=== PATIENT | male | born 1945 | race Two or more races ===

== ENCOUNTER → 2023-04-17 | Outpatient (CLI) | payer OTHER | END | disposition home or self-care (01) | LOC: LAB 14:50 | PROVIDERS: ATTEND Internal Medicine | DX: Z12.11 Encounter for screening for malignant neoplasm of colon (principal); E11.9 Type 2 diabetes mellitus without complications; E78.5 Hyperlipidemia, unspecified; N42.9 Disorder of prostate, unspecified; R68.89 Other general symptoms and signs | CPT/HCPCS: 82270 ==

== ENCOUNTER → 2024-03-09 | Outpatient (CLI) | payer OTHER ==
[2024-03-09 14:50] LABS: Alanine Aminotransferase 27 U/L (7-40); Albumin 4.3 g/dL (3.2-4.8); Alkaline Phosphatase 75 U/L (46-116); Anion Gap 6 (5-15); Aspartate Aminotransferase 14 U/L (13-40); BUN/Creatinine Ratio 13.5 (10.0-20.0); Blood Urea Nitrogen 13 mg/dL (9-23); Calcium 9.6 mg/dL (8.7-10.4); Carbon Dioxide 29 mmol/L (20-30); Chloride 102 mmol/L (98-107); Glucose 216 mg/dL (74-106); Potassium 3.8 mmol/L (3.5-5.1); Sodium 137 mmol/L (136-145)
[2024-03-09 14:51] LABS: Bilirubin, Total 0.7 mg/dL (0.2-1.0); Total Protein 6.9 g/dL (5.7-8.2)
[2024-03-09 15:13] LABS: Creatinine, Urine 120.64 mg/dL (30.0-125.0)
== END | disposition home or self-care (01) ==
LOC: LAB 13:59
PROVIDERS: ATTEND Internal Medicine
DX: E11.9 Type 2 diabetes mellitus without complications (principal)
CPT/HCPCS: 36415; 80053; 82043; 82570; 83036

== ENCOUNTER 2024-12-22 11:51 | Outpatient (CLI) | payer OTHER ==
[2024-12-22 12:10] LABS: Urine Bacteria None Seen /hpf (None Seen)
[2024-12-22 12:29] LABS: Basophils # (auto) 0 10 ^3/uL (0-0.2); Basophils % (auto) 0.4 % (0.0-2.0); Eosinophils # (auto) 0 10 ^3/uL (0-0.8); Eosinophils % (auto) 0.7 % (0.0-7.0); Hematocrit 42.3 % (41.0-53.0); Hemoglobin 14.5 g/dL (13.5-17.5); Lymphocytes # (auto) 1.2 10 ^3/uL (0.4-5.4); Lymphocytes % (auto) 22.1 % (10.0-50.0); Mean Corpuscular Hemoglobin 32.6 pg (28.0-32.0); Mean Corpuscular Hgb Conc. 34.2 g/dL (32.0-36.0); Mean Corpuscular Volume 95.5 fL (80.0-100.0); Monocytes # (auto) 0.3 10 ^3/uL (0-1.3); Monocytes % (auto) 5.3 % (0.0-12.0); Neutrophils # (auto) 3.8 10 ^3/uL (1.6-8.6); Neutrophils % (auto) 71.5 % (37.0-80.0); Nucleated Red Blood Cells % 0.1 %; Platelet Count (auto) 196 10^3/uL (140-450); Red Blood Cells 4.43 10^6/uL (4.5-5.90); Red Cell Distribution Width 13.4 % (11.8-14.3); Urine Blood Negative /uL (Negative); Urine Clarity Clear (Clear); Urine Color Light-Yellow (Yellow); Urine Protein, UAD Negative (Negative); Urine Squamous Epithelial Cell None Seen /hpf (<5); Urine Urobilinogen Normal (Negative); Urine WBC < 1 /HPF (0-3); White Blood Cell 5.4 10^3/uL (4.4-10.8)
[2024-12-22 12:41] LABS: Alanine Aminotransferase 26 U/L (7-40); Albumin 4.6 g/dL (3.2-4.8); Alkaline Phosphatase 76 U/L (46-116); Anion Gap 9 (5-15); Aspartate Aminotransferase 18 U/L (13-40); BUN/Creatinine Ratio 15.3 (10.0-20.0); Bilirubin, Total 0.7 mg/dL (0.2-1.0); Blood Urea Nitrogen 15 mg/dL (9-23); Calcium 10.2 mg/dL (8.7-10.4); Carbon Dioxide 27 mmol/L (20-31); Chloride 103 mmol/L (98-107); Cholesterol 105 mg/dL (< 200); Glucose 162 mg/dL (74-106); HDL Cholesterol 48 mg/dL (40-59); LDL Cholesterol 44 mg/dL (< 100); Potassium 3.9 mmol/L (3.5-5.1); Sodium 139 mmol/L (136-145); Triglycerides 69 mg/dL (< 150)
[2024-12-22 13:04] LABS: Creatinine, Urine 46.75 mg/dL (30.0-125.0)
[2024-12-22 13:20] LABS: Micro Albumin < 3.0 mg/L (<30.0); Microalb/Creat Ratio, Urine < 6.00
== END 2024-12-22 17:00 | disposition home or self-care (01) ==
LOC: LAB 11:51
PROVIDERS: ATTEND Internal Medicine
DX: E11.65 Type 2 diabetes mellitus with hyperglycemia (principal); E78.00 Pure hypercholesterolemia, unspecified
CPT/HCPCS: 36415; 80053; 80061; 81001; 82043; 82570; 83036; 85025

== ENCOUNTER 2024-12-27 12:59 | Outpatient (CLI) | payer OTHER ==
[2024-12-27 14:02] LABS: Lipase 38 U/L (12-53)
[2024-12-27 14:03] LABS: Amylase 64 U/L (30-118)
== END 2024-12-27 17:00 | disposition home or self-care (01) ==
LOC: LAB 12:59
PROVIDERS: ATTEND Internal Medicine
DX: N42.9 Disorder of prostate, unspecified (principal); K85.90 Acute pancreatitis without necrosis or infection, unspecified; E78.00 Pure hypercholesterolemia, unspecified; R68.89 Other general symptoms and signs; E11.69 Type 2 diabetes mellitus with other specified complication; Z12.11 Encounter for screening for malignant neoplasm of colon
CPT/HCPCS: 36415; 82150; 83690; 84153

== ENCOUNTER 2025-01-04 13:34 | Outpatient (CLI) | payer OTHER | END 2025-01-04 17:00 | disposition home or self-care (01) | LOC: LAB 13:34 | PROVIDERS: ATTEND Internal Medicine | DX: E11.69 Type 2 diabetes mellitus with other specified complication (principal); E78.00 Pure hypercholesterolemia, unspecified; N42.9 Disorder of prostate, unspecified; Z12.11 Encounter for screening for malignant neoplasm of colon | CPT/HCPCS: 82270 ==

== ENCOUNTER → 2025-06-15 | Day surgery (SDC) | payer OTHER ==
[2025-06-14 12:43] LABS: Hematocrit 38.3 % (41.0-53.0); Hemoglobin 13.4 g/dL (13.5-17.5); Mean Corpuscular Hemoglobin 33.2 pg (28.0-32.0); Mean Corpuscular Volume 94.8 fL (80.0-100.0); Nucleated Red Blood Cells % 0.0 %; Urine Budding Yeast OCCASIONAL /hpf (None Seen); Urine Protein, UAD Negative (Negative)
[2025-06-14 12:57] LABS: INR 1.03 (0.9-1.15); Partial Thromboplastin Time 28.8 SEC (24.5-34.5); Prothrombin Time 10.9 sec (9.3-11.8)
[2025-06-14 13:18] LABS: Alanine Aminotransferase 27 U/L (7-40); Albumin 4.4 g/dL (3.2-4.8); Alkaline Phosphatase 75 U/L (46-116); Anion Gap 9 (5-15); BUN/Creatinine Ratio 13.3 (10.0-20.0); Blood Urea Nitrogen 12 mg/dL (9-23); Calcium 9.6 mg/dL (8.7-10.4); Carbon Dioxide 29 mmol/L (20-31); Chloride 102 mmol/L (98-107); Potassium 4.3 mmol/L (3.5-5.1); Sodium 140 mmol/L (136-145); Total Protein 6.8 g/dL (5.7-8.2)
[2025-06-14 13:19] LABS: Bilirubin, Total 0.5 mg/dL (0.2-1.0)
[2025-06-14 13:20] LABS: Glucose 118 mg/dL (74-106)
--- NOTE | 2025-06-14 13:50 | DVHHP2 ---
History Allergies: Coded Allergies: NO KNOWN ALLERGIES (Unverified , 06/14/25) Chief Complaint: Left-sided inguinal hernia Present Illness(Onset/Duration Mr. Valencia is a 80-year-old male who presents for elective repair of left-sided inguinal hernia that has been present for a little over a year. Hernia causes him pain and discomfort. It is reducible. Patient has no complaints this morning, not sick or being recently sick. Past Surgical History Past medical history diabetes and hyperlipidemia Past surgical history umbilical hernia repair x2 with mesh Physical Exam Skin No jaundice EENT Neck is supple Chest and Lungs Nonlabored breathing with symmetric expansion Abdomen Nondistended, periumbilical scars were healed, left inguinal hernia with a proximally 2-3 cm in diameter defect, reducible, no overlying skin changes Extremities Moves all with positive distal pulses x4 Plan Mr. Valencia is a 80-year-old male who presents for elective open repair of left- sided inguinal hernia with mesh. Preop labs and imaging were reviewed, no abnormalities noted. All questions regarding the procedure were answered, and patient has no other doubts or concerns. We will proceed with surgery as planned. CAREN BLANCO MD Jun 14, 2025 13:50
[~2025-06-15] VITALS: Ht 177.8 cm; Wt 79.4 kg
[~2025-06-15] MED LIST: ACETAMINOPHEN IV 100 ML IV ONE; ATOR10TA52 PO; BENA20TA12 PO; BUPIVACAINE 0.25% INJ 50ML VIAL ONE; GARL200T PO; GLIP5TAB21 PO; HYDROmorphone HCL 2 MG/ML VL/or syr IV PRN; LIDOCAINE 1% HCL (LOCAL ANESTH.) INJ 20ML MDV ONE; MEPERIDINE HCL (25 MG/ML) 1ML VIAL ONE; METF-370 PO; METOCLOPRAMIDE HCL 5MG/ml INJ 2ml VIAL ONE; MIDAZOLAM HCL 2MG/2ML 2ml VIAL (1mg/ml) IV PRN; MIDAZOLAM HCL 2MG/2ML 2ml VIAL (1mg/ml) ONE; MORPHINE SULFATE 4 MG/ML SYR/VIAL IV PRN; MULT-1018 PO; OMEG-20 PO; OREGCAP OR; POLY335015 PO; PROPOFOL 10 MG/ML 20 ML IV ONE; PSYL58.632 PO; ROCURONIUM 10MG/ML 10ML VIAL IV ONE; SUGAMMADEX 200mg/2ml Vial (100MG/ML) IV ONE; fentaNYL CITRATE 100 MCG/2 ML VL ONE; hydrALAZINE HCL 20 MG/ML VL IV PRN
[2025-06-15] MEDS: ceFAZolin 2 GM/D5W50ml 50 ML IV ONE (09:17)
[2025-06-15] MEDS: BUPIVACAINE HCL 0.25% P/F 10 ML VIAL ONE (09:56)
--- NOTE | 2025-06-15 11:40 | DVHOP2 ---
Operative Report - 2 Report Details Date: 06/15/25 Preop Diagnosis: Left inguinal hernia Postop Diagnosis: Left indirect inguinal hernia Surgeon: Ivan Gonzalez MD Material Lister: Davon Winston NP Anesthesiologist: Dr. Hodge Anesthesia: General Implant: Bard plug and patch mesh, medium-sized Consent: The patient was informed of the risks and benefits of the procedure. These include but are not limited to complications of anesthesia, postoperative infection, incomplete relief of symptoms, recurrence of symptoms, damage to b lood vessels, nerves and tendons, deep venous thrombosis, pulmonary embolism and possible need for repeat surgery in the future. Complications: None Estimated Blood Loss: 10 mL Findings: Indirect inguinal hernia with an approximate 3-4 cm defect, colon containing. Weak inguinal canal floor. Indications for Surgery: Left-sided inguinal hernia causing pain and discomfort, enlarging over time. Name of Procedure Performed Open left-sided inguinal hernia repair with mesh Procedure Details Procedure Details: Upon arriving to the operating room the patient was transferred to the operating table and placed in the supine position with arms extended. General endotracheal anesthesia was induced. Time-out was observed. Patient was prepped and draped in the standard sterile surgical fashion with Betadine- Betadine, to include penis and scrotum. I then proceeded to identify the anter ior superior iliac spine and the left pubic tubercle and marked these 2 sites with skin marker. I then proceeded to make a transverse incision approximately 1 cm above the left pubic tubercle and extending laterally. I then carried the dissection down to external oblique aponeurosis utilizing cautery. Once the external oblique aponeurosis was completely exposed and free from all overlying tissue, I proceeded to make a shaan with a 15 blade. I then opened the external oblique aponeurosis towards the external inguinal ring. Utilizing blunt digital dissection I then freed both flaps of the external oblique aponeurosis from the spermatic cord/hernia sac and contents. I then went around the spermatic cord and contents of the inguinal canal at the level of the left-sided pubic tubercle and placed a Rachel drain around. I then proceeded to dissect off all of the overlying cremasteric fibers, carefully not to injure the spermatic cord or any of its contents. I then was able to identify the hernia sac which was large, located anteriorly and medially to the spermatic cord. The hernia sac was then completely cleared of all its attachment to the spermatic cord and surrounding tissues, both bluntly and with cautery. The spermatic cord was completely intact and I was able to identify the pampiniform plexus, the testicular artery and the vas deferens, all protected. All nerves encountered were protected also. Once the hernia sac was completely free all the way down to its base, I proceeded to open the of the most distal end, and noted that it was colon containing. I then proceeded to reduce the colon back into the peritoneal cavity, as the colon looked healthy. The defect was approximately 3-4 cm in diameter. I then proceeded to ligate the hernia sac at its base with a running 2-0 Vicryl, and excess hernia sac was transected. The ligated piece of sac was then returned through the fascial defect. I then utilized the Bard plug and patch medium-sized mesh, the plug portion and placed it inside the indirect defect. I secured the plug portion in place with 3 interrupted 2-0 Ethibond sutures. I then proceeded to irrigate the wound, it was hemostatic. I palpated the floor and it was weak no hernia identified in this area. I then proceeded to place the patch portion of the mesh. I secured it medially to the lacunar ligament, inferiorly to the shelving edge of the inguinal ligament and super iorly to the conjoint tendon and then to the external oblique muscle. All sutures were 2-0 Ethibond in interrupted. Mesh laid flat and without tension. The tails of the mesh were secured around the spermatic cord, snugly with a 2-0 Ethibond on [id number] fashion, to recreate the internal inguinal ring. Again the wound was irrigated, it was hemostatic. I then proceeded to close the external oblique aponeurosis with a running 2-0 Vicryl and recreated the external inguinal ring. Wound was again irrigated it was hemostatic. Wound was then closed in layers, interrupted 3-0 Vicryl were used for Halle's fascia and dermis. Skin was closed with 4-0 Monocryl subcuticular fashion. Dermabond was placed over the incision. All counts complete and correct at the end of the procedure. Local used was mixture of 1% lidocaine and 0.25% Marcaine. Left testicle was pulled back into the scrotum, and both testicles felt in the scrotum. Jock strap was used for scrotal support. Patient tolerated the procedure well and was transferred to PACU in stable condition. Specimen: Hernia sac Condition Stable Disposition Home IVAN BLANCO MD Jun 15, 2025 11:40
[2025-06-15 11:55] VITALS: PULSE 70; RESP 19; O2SAT 97
[2025-06-15 12:05] VITALS: PULSE 68; RESP 16; O2SAT 100
[2025-06-15] MEDS: ONDANSETRON HCL 4 MG/2 ML VIAL IV PRN (12:33)
[2025-06-15] MEDS: METOCLOPRAMIDE HCL 5MG/ml INJ 2ml VIAL IV ONE (12:58)
[2025-06-15] MEDS: ACETAMINOPHEN IV 1000 MG/100ML (10MG/ML) IV ONE (13:01)
[2025-06-15 13:10] VITALS: BP 118/64; PULSE 75; RESP 15; O2SAT 95
== END | disposition home or self-care (01) ==
LOC: SUR 06:51
PROVIDERS: ATTEND Student in an Organized Health Care Education/Training Program
DX: K40.90 Unilateral inguinal hernia, without obstruction or gangrene, not specified as recurrent (principal); I10 Essential (primary) hypertension; I25.10 Atherosclerotic heart disease of native coronary artery without angina pectoris; E78.5 Hyperlipidemia, unspecified; E11.9 Type 2 diabetes mellitus without complications; Z79.84 Long term (current) use of oral hypoglycemic drugs; Z79.899 Other long term (current) drug therapy; Z98.890 Other specified postprocedural states
CPT/HCPCS: 36415; 49505; 80053; 81001; 82962; 85025; 85610; 85730; 86850; 86900; 86901; 88302; C1781; J0690; J1100; J2003; J2175; J2250; J2405; J2704; J2765; J3010; J3490; J0131